=== PATIENT | female | born 1930 | race Caucasian/White ===

== ENCOUNTER 2017-12-28 18:20 | Inpatient (IN) | payer MEDICARE, OTHER, MEDICAID ==
[2017-12-28 20:12] LABS: ADD MAN DIFF? NO
[2017-12-28 20:15] LABS: WHITE BLOOD COUNT 8.3 10^3/ul (4.8-10.8)
[2017-12-28 20:15] LABS: BASOPHILS % 0.4 % (0.0-2.0); EOSINOPHILS # 0.2 10^3/ul (0.0-0.5); HEMATOCRIT 37.8 % (37.0-47.0); HEMOGLOBIN 12.1 g/dl (12.0-16.0); LYMPHOCYTES # 1.8 10^3/ul (0.8-2.9); LYMPHOCYTES % 22.2 % (15.0-51.0); MEAN CORPUSCULAR HEMOGLOBIN 28.5 pg (29.0-33.0); MEAN CORPUSCULAR VOLUME 89.2 fl (82.0-101.0); MEAN PLATELET VOLUME 10.6 fl (7.4-10.4); MONOCYTE # 0.8 10^3/ul (0.3-0.9); MONOCYTES % 9.9 % (0.0-11.0); NEUTROPHIL # 5.4 10^3/ul (1.6-7.5); NEUTROPHILS % 65.1 % (39.0-77.0); PLATELET COUNT 133 10^3/UL (140-415); RED BLOOD COUNT 4.24 10^6/ul (4.20-5.40); RED CELL DISTRIBUTION WIDTH 13.4 % (11.5-14.5)
[2017-12-28] MEDS: ONDANSETRON 4 MG INJ IV (20:17)
[2017-12-28] MEDS: morphine 4 MG/ML VIAL IV (20:17)
[2017-12-28] MEDS: SOD CHLORIDE 0.9% 1,000 ML IV (20:18)
[2017-12-28 20:29] LABS: PROTIME 13.3 Sec (11.9-14.9)
[2017-12-28 20:30] LABS: PARTIAL THROMBOPLASTIN TIME 24.2 Sec (25.0-35.0)
[2017-12-28 20:35] LABS: ALANINE AMINOTRANSFERASE 18 IU/L (13-69); ALBUMIN/GLOBULIN RATIO 1.25; ALKALINE PHOSPHATASE 78 IU/L (42-121); ANION GAP 10 (8-16); ASPARTATE AMINO TRANSFERASE 19 IU/L (15-46); BILIRUBIN,INDIRECT 0.3 mg/dl (0-1.1); BILIRUBIN,TOTAL 0.3 mg/dl (0.2-1.3); BLOOD UREA NITROGEN 14 mg/dl (7-20); CALCIUM 9.2 mg/dl (8.4-10.2); CARBON DIOXIDE 29 mmol/L (21-31); CHLORIDE 105 mmol/L (97-110); CREATININE 0.67 mg/dl (0.44-1.00); GLUCOSE 105 mg/dl (70-220); LIPASE 60 U/L (23-300); POTASSIUM 3.7 mmol/L (3.5-5.1); SODIUM 140 mmol/L (135-144); TOTAL PROTEIN 7.2 g/dl (6.1-8.1)
[2017-12-28 21:01] LABS: TROPONIN-I < 0.012 ng/ml (0.000-0.120)
[2017-12-29] MEDS: HYDROCODONE/APAP (5/325) TAB PO ×4 (00:55→14:18)
[2017-12-29] MEDS ORDERED: ACETAMINOPHEN 325 MG TAB PO (01:00)
[2017-12-29] MEDS ORDERED: ONDANSETRON 4 MG INJ IV (01:00)
[2017-12-29] MEDS ORDERED: ALBUTEROL/IPRATROPIUM (NEB) 3 ML AMP HHN (01:00)
[2017-12-29] MEDS: SOD CHLORIDE 0.9% 1,000 ML IV (01:17)
[2017-12-29] MEDS: PANTOPRAZOLE (EC) 40 MG TAB PO (05:35)
[2017-12-29 06:53] LABS: ADD MAN DIFF? NO
[2017-12-29 07:00] LABS: BASOPHILS % 0.4 % (0.0-2.0); EOSINOPHILS # 0.1 10^3/ul (0.0-0.5); HEMATOCRIT 34.3 % (37.0-47.0); LYMPHOCYTES # 1.4 10^3/ul (0.8-2.9); LYMPHOCYTES % 17.2 % (15.0-51.0); MEAN CORPUSCULAR HEMOGLOBIN 28.5 pg (29.0-33.0); MEAN CORPUSCULAR HGB CONC 32.1 g/dl (32.0-37.0); MEAN CORPUSCULAR VOLUME 88.9 fl (82.0-101.0); MEAN PLATELET VOLUME 11.3 fl (7.4-10.4); MONOCYTE # 0.7 10^3/ul (0.3-0.9); MONOCYTES % 8.3 % (0.0-11.0); NEUTROPHIL # 5.7 10^3/ul (1.6-7.5); NEUTROPHILS % 72.7 % (39.0-77.0); PLATELET COUNT 125 10^3/UL (140-415); RED BLOOD COUNT 3.86 10^6/ul (4.20-5.40); RED CELL DISTRIBUTION WIDTH 13.5 % (11.5-14.5)
[2017-12-29 07:00] LABS: WHITE BLOOD COUNT 7.8 10^3/ul (4.8-10.8)
[2017-12-29 07:21] LABS: ALANINE AMINOTRANSFERASE 29 IU/L (13-69); ALBUMIN 3.3 g/dl (3.3-4.9); ALBUMIN/GLOBULIN RATIO 1.13; ALKALINE PHOSPHATASE 67 IU/L (42-121); ANION GAP 11 (8-16); ASPARTATE AMINO TRANSFERASE 25 IU/L (15-46); BILIRUBIN,INDIRECT 0.3 mg/dl (0-1.1); BILIRUBIN,TOTAL 0.3 mg/dl (0.2-1.3); BLOOD UREA NITROGEN 9 mg/dl (7-20); CALCIUM 8.6 mg/dl (8.4-10.2); CARBON DIOXIDE 27 mmol/L (21-31); CHLORIDE 108 mmol/L (97-110); CREATININE 0.49 mg/dl (0.44-1.00); GLUCOSE 112 mg/dl (70-220); POTASSIUM 3.6 mmol/L (3.5-5.1); SODIUM 142 mmol/L (135-144); TOTAL PROTEIN 6.2 g/dl (6.1-8.1)
[2017-12-29] MEDS ORDERED: morphine 2 MG INJ IV ×2 (08:00→14:30)
[2017-12-29] MEDS: LOSARTAN 25 MG TAB PO (08:42)
[2017-12-29] MEDS: AMLODIPINE 5 MG TAB PO (08:42)
[2017-12-29] MEDS: CHOLECALCIFEROL 2,000 UNIT CAP PO (08:45)
[2017-12-29] MEDS: ASPIRIN (EC) 81 MG TAB PO (08:45)
[2017-12-29] MEDS ORDERED: IBUPROFEN 600 MG TAB PO (19:30)
[2017-12-29] MEDS: ATORVASTATIN 80 MG TAB PO (20:49)
[2017-12-30] MEDS: SOD CHLORIDE 0.9% 1,000 ML IV (00:04)
[2017-12-30] MEDS: PANTOPRAZOLE (EC) 40 MG TAB PO (06:24)
[2017-12-30] MEDS ORDERED: ALENDRONATE 70 MG TAB PO (07:00)
[2017-12-30] MEDS: ASPIRIN (EC) 81 MG TAB PO (08:15)
[2017-12-30] MEDS: CHOLECALCIFEROL 2,000 UNIT CAP PO (08:15)
[2017-12-30] MEDS: LOSARTAN 25 MG TAB PO (08:15)
[2017-12-30] MEDS: AMLODIPINE 5 MG TAB PO (08:16)
== END 2017-12-30 14:35 | disposition home or self-care (01) | DRG 185 ==
LOC: PP2 23:08 → E/R 18:20
DX: S22.41XA Multiple fractures of ribs, right side, initial encounter for closed fracture (principal); M81.0 Age-related osteoporosis without current pathological fracture; I10 Essential (primary) hypertension; E78.5 Hyperlipidemia, unspecified; W01.0XXA Fall on same level from slipping, tripping and stumbling without subsequent striking against object, initial encounter; I25.10 Atherosclerotic heart disease of native coronary artery without angina pectoris
CPT/HCPCS: 36415; 71045; 71250; 80053; 83690; 84484; 85025; 85610; 85730; 93005; 96361; 96374; 96375; 99285-25

== ENCOUNTER 2018-12-16 15:09 | Emergency (ER) | payer MEDICARE, OTHER ==
[2018-12-16] MEDS: IBUPROFEN 600 MG TAB PO (16:52)
== END 2018-12-16 17:58 | disposition home or self-care (01) ==
LOC: FTE 15:09
DX: S92.354A Nondisplaced fracture of fifth metatarsal bone, right foot, initial encounter for closed fracture (principal); I10 Essential (primary) hypertension; W18.2XXA Fall in (into) shower or empty bathtub, initial encounter; Y92.002 Bathroom of unspecified non-institutional (private) residence as the place of occurrence of the external cause; Z79.82 Long term (current) use of aspirin
CPT/HCPCS: 73610; 73610-RT; 73630; 99283-25